=== PATIENT | female | born 1980 | race Two or more races ===

== ENCOUNTER 2024-04-08 20:49 | Inpatient (IN) | payer MEDICAID ==
[~2024-04-08] VITALS: Ht 152.4 cm; Wt 49.9 kg
[2024-04-08] MEDS: LORazepam 2 MG/ML VIAL IM ONE (21:34)
[2024-04-08] MEDS: HALOPERIDOL LACTATE 5 MG/ML VIAL IM ONE (21:34)
[2024-04-08] MEDS: DiphenhydrAMINE HCL 50 MG/ML VIAL IM ONE (21:34)
[2024-04-08 21:59] LABS: BASOPHILS % (AUTO) 0.2 % (0.0-2.0); EOSINOPHILS % (AUTO) 0.3 % (1.0-6.0); HEMATOCRIT 34.6 % (36-46); HEMOGLOBIN 11.7 g/dL (12.0-16.0); LYMPHOCYTES # (AUTO) 2.8 K/uL (1.0-4.8); LYMPHOCYTES % (AUTO) 25.4 % (22.0-44.0); MEAN CORPUSCULAR HEMOGLOBIN 32.4 pg (26.0-34.0); MEAN CORPUSCULAR HGB CONC 33.7 G/dL (31.0-37.0); MEAN CORPUSCULAR VOLUME 96 fL (80-100); MONOCYTES # (AUTO) 0.7 K/uL (0.1-1.0); MONOCYTES % (AUTO) 6.3 % (2.0-9.0); NEUTROPHILS # (AUTO) 7.4 K/uL (1.8-7.7); NEUTROPHILS % (AUTO) 67.8 % (40.0-70.0); PLATELET COUNT (AUTO) 329 K/uL (150-450); RED BLOOD CELL COUNT(AUTO) 3.61 MIL/uL (4.00-5.20)
[2024-04-08 22:07] LABS: ANION GAP 8 mmol/L (8-16); CALCIUM, TOTAL 8.8 mg/dL (8.8-10.5); CARBON DIOXIDE 27 mmol/L (22-29); CHLORIDE 104 mmol/L (98-107); GLOMERULAR FILTR. RATE CALC > 60 mL/min (>60); GLUCOSE,RANDOM 111 mg/dL (70-110); POTASSIUM 3.7 mmol/L (3.5-5.1); SODIUM SERUM 139 mmol/L (136-145); UREA NITROGEN, BLOOD 6 mg/dL (7-18)
[2024-04-08 22:16] LABS: ALCOHOL, BLOOD (SERUM) 210 mg/dL (0-10)
[2024-04-08 22:30] LABS: PH,URINE DRUG SCREEN 5.5 (5.0-8.0)
[2024-04-08 22:39] LABS: ALCOHOL, URINE DRUG SCREEN POSITIVE (NEGATIVE); AMPHET/METH SCREEN,URINE NEGATIVE (NEGATIVE); BARBITURATE SCREEN, URINE NEGATIVE (NEGATIVE); BENZODIAZEPINES SCREEN,URINE NEGATIVE (NEGATIVE); CANNABINOID SCREEN,URINE NEGATIVE (NEGATIVE); COCAINE SCREEN,URINE NEGATIVE (NEGATIVE); METHADONE SCREEN, URINE NEGATIVE (NEGATIVE); OPIATE SCREEN,URINE NEGATIVE (NEGATIVE); PHENCYCLIDINE SCREEN,URINE NEGATIVE (NEGATIVE)
[2024-04-08 22:44] LABS: APPEARANCE,URINE CLEAR (CLEAR); BILIRUBIN,URINE NEGATIVE (NEGATIVE); COLOR,URINE COLORLESS (YELLOW); GLUCOSE, URINE (UA) NEGATIVE (NEGATIVE); KETONES,URINE NEGATIVE (NEGATIVE); LEUKOCYTE ESTERASE ,URINE NEGATIVE (NEGATIVE); NITRATE,URINE NEGATIVE (NEGATIVE); OCCULT BLOOD,URINE TRACE (NEGATIVE); PH,URINE 5.5 (5.0-8.0); PROTEIN,URINE NEGATIVE (NEGATIVE); SPECIFIC GRAVITIY, URINE 1.006 (1.003-1.030); UROBILINOGEN,URINE <=1.0 mg/dL (<=1.0)
[2024-04-08] MEDS ORDERED: ZOLPIDEM TARTRATE 10 MG TABLET PO PRN (22:45)
[2024-04-08] MEDS ORDERED: HALOPERIDOL 5 MG TABLET PO PRN (22:45)
[2024-04-08 22:52] LABS: BACTERIA,URINE None Seen /HPF (None Seen); SQUAMOUS EPITHELIAL CELL,UR Few /LPF (None Seen); WBC,URINE 0-2 /HPF (0-5)
[2024-04-09 00:48] LABS: COVID AG,FIA SOURCE NASAL SWAB
[2024-04-09 00:57] LABS: SARS-COV2 (COVID) ANTIGEN,FIA Negative (Negative)
[2024-04-09] MEDS ORDERED: DULO-113 PO (15:59)
[2024-04-09] MEDS ORDERED: QUET200T PO (15:59)
[2024-04-09 17:39] VITALS: BP 121/84; PULSE 92; RESP 17; TEMP 97.3; O2SAT 98
[2024-04-09] MEDS ORDERED: HYDR-4808 PO (19:58)
[2024-04-09] MEDS ORDERED: DULO-114 PO (19:58)
[2024-04-09] MEDS ORDERED: ONDANSETRON HCL 4 MG TABLET PO PRN (20:00)
[2024-04-09] MEDS ORDERED: CloNIDine HCL 0.1 MG TABLET PO PRN (20:00)
[2024-04-09] MEDS ORDERED: MAG HYDROX/ALUMINUM HYD/SIMETH ES 30 ML SUSPENSION UDCUP PO PRN (20:00)
[2024-04-09] MEDS ORDERED: ALBUTEROL SULFATE HFA 90 MCG/PUFF 8 GM INHALER IH PRN (20:00)
[2024-04-09] MEDS ORDERED: BENZOCAINE/MENTHOL LOZENGE PO PRN (20:00)
[2024-04-09] MEDS ORDERED: ACETAMINOPHEN 325 MG TABLET PO PRN (20:00)
[2024-04-09] MEDS ORDERED: BACITRACIN 28 GM OINTMENT TP PRN (20:00)
[2024-04-09] MEDS ORDERED: PETROLATUM,WHITE 28 GM JELLY TP PRN (20:00)
[2024-04-09] MEDS ORDERED: DOCUSATE SODIUM 100 MG CAPSULE PO PRN (20:00)
[2024-04-09] MEDS ORDERED: IBUPROFEN 600 MG TABLET PO PRN (20:00)
[2024-04-09] MEDS ORDERED: LOPERAMIDE HCL 2 MG CAPSULE PO PRN (20:00)
[2024-04-09] MEDS ORDERED: MAGNESIUM HYDROXIDE SUSPENSION 30 ML UDCUP PO PRN (20:00)
[2024-04-09] MEDS ORDERED: OMEPRAZOLE 20 MG CAPSULE PO PRN (20:00)
[2024-04-09 20:26] VITALS: BP 120/75; PULSE 90; RESP 18; TEMP 96.9; O2SAT 98
[2024-04-10] MEDS: LORazepam 2 MG TABLET PO PRN (08:16)
[2024-04-10] MEDS: NICOTINE 21 MG/24 HOUR PATCH TD SCH (08:17)
[2024-04-10 08:35] VITALS: BP 111/74; PULSE 84; RESP 17; TEMP 97.9; O2SAT 98
[2024-04-10] MEDS ORDERED: NICOTINE 21 MG/24 HOUR PATCH TD PRN (09:00)
[2024-04-10 09:28] LABS: FREE T4 (FREE THYROXINE) 0.73 ng/dL (0.76-1.46); THYROID STIMULATING HORMONE 1.42 uIU/mL (0.36-3.74)
[2024-04-10] MEDS: DIVALPROEX SODIUM 500 MG DR TABLET PO SCH (16:39)
[2024-04-10 20:00] VITALS: BP 130/93; PULSE 100; RESP 16; TEMP 97.3; O2SAT 95
[2024-04-10] MEDS: QUEtiapine FUMARATE 300 MG TABLET PO SCH (20:30)
[2024-04-11] MEDS: DULoxetine HCL 30 MG CAPSULE PO SCH (08:07)
[2024-04-11 08:13] VITALS: BP 100/68; PULSE 86; RESP 16; TEMP 97.5; O2SAT 98
[2024-04-11] MEDS ORDERED: DULoxetine HCL 30 MG CAPSULE PO SCH (09:00)
[2024-04-11] MEDS ORDERED: DIVA-112 PO (11:35)
[2024-04-11] MEDS ORDERED: QUET300T2 PO (11:35)
== END 2024-04-11 12:20 | disposition home or self-care (01) | DRG 753 ==
LOC: EMS 20:51 → B3A 04-09 13:30
PROVIDERS: ADMIT Psychiatry & Neurology Psychiatry; ATTEND Psychiatry & Neurology Psychiatry
DX: F31.9 Bipolar disorder, unspecified (principal); F95.2 Tourette's disorder; F10.10 Alcohol abuse, uncomplicated; Z20.822 Contact with and (suspected) exposure to COVID-19; F41.9 Anxiety disorder, unspecified; G47.00 Insomnia, unspecified; K59.00 Constipation, unspecified; Y90.7 Blood alcohol level of 200-239 mg/100 ml
CPT/HCPCS: 80048; 80307; 81001; 84439; 84443; 84703; 85025; 99285; G0480; J1200; J1630; J2060